=== PATIENT | male | born 1995 | race Caucasian/White ===

== ENCOUNTER 2025-01-05 07:35 | Emergency (ER) | payer OTHER ==
[~2025-01-05] VITALS: Ht 170.2 cm; Wt 74.0 kg
[2025-01-05 08:04] VITALS: TEMP 36.7; O2SAT 99
[2025-01-05] MEDS ORDERED: IBUP-2029 MT (08:43)
[2025-01-05 09:03] VITALS: BP 136/79; PULSE 94; RESP 18; O2SAT 100
[2025-01-05] MEDS: IBUPROFEN 600MG TABLET PO SCH (09:08)
[2025-01-05] MEDS: HYDROCODONE/ACETAMINOPHEN 5/325MG TABLET PO SCH (09:08)
== END 2025-01-05 09:30 | disposition home or self-care (01) ==
LOC: ER 07:35
DX: M25.561 Pain in right knee (principal); I10 Essential (primary) hypertension; X50.1XXA Overexertion from prolonged static or awkward postures, initial encounter; Y93.18 Activity, surfing, windsurfing and boogie boarding; Y92.89 Other specified places as the place of occurrence of the external cause; Y99.8 Other external cause status
CPT/HCPCS: 73560; 99283